=== PATIENT | male | born 1985 | race Caucasian/White ===

== ENCOUNTER 2018-07-31 17:38 | Emergency (ER) | payer SELFPAY ==
[2018-07-31 18:15] LABS: #Basophils 0.1 thou/uL (0.0-0.2); #Eosinphils 0.1 thou/uL (0.0-0.7); #Lymphocytes 2.5 thou/uL (1.20-3.40); #Monocytes 0.5 thou/uL (0.11-0.59); #Neutrophils 8.9 thou/uL (1.40-6.50); %Basophils 0.7 % (0.0-1.0); %Eosinophils 0.4 % (0.0-10.0); %Lymphocytes 20.8 % (21.0-51.0); %Monocytes 4.3 % (0.0-10.0); %Neutrophils 73.9 % (42.0-75.0); Hemoglobin 13.9 g/dL (14.0-18.0); Mean Corpuscular HGB CONC 33.3 g/dL (32.0-36.0); Mean Corpuscular Hemoglobin 28.2 pg (27.0-31.0); Mean Corpuscular Volume 84.8 fL (78.0-98.0); Mean Platelet Volume 8.8 fL (7.4-10.4); Platelet Count 175 thou/uL (130-400); RBC Distribution Width 11.7 % (11.5-14.5); Red Blood Cell (RBC) Count 4.94 mill/uL (4.70-6.10); White Blood Cell (WBC) Count 12.1 thou/uL (4.8-10.8)
[2018-07-31 18:29] LABS: ALT (SGPT) 17 U/L (8-55); AST (SGOT) 18 U/L (5-34); Albumin 4.3 g/dL (3.5-5.0); Alkaline Phosphatase 57 U/L (40-150); Anion Gap 15 mmol/L (10-20); BUN (Urea Nitrogen) 13 mg/dL (8.9-20.6); Bilirubin, Total 0.5 mg/dL (0.2-1.2); Calc. Creatinine Clearance 0 mL/min (70-130); Calcium 9.9 mg/dL (7.8-10.44); Carbon Dioxide 25 mmol/L (22-29); Chloride 105 mmol/L (98-107); Estimated GFR-MDRD Greater than 90; Globulin 3.3 g/dL (2.4-3.5); Glucose 94 mg/dL (70-105); Potassium 3.8 mmol/L (3.5-5.1); Protein, Total 7.6 g/dL (6.0-8.3); Sodium 141 mmol/L (136-145)
[2018-07-31 18:31] LABS: CKMB 1.4 ng/mL (0-6.6); Troponin I Less than 0.010 ng/mL (< 0.028)
--- NOTE | 2018-07-31 18:59 | RAD ---
.PORTABLE UPRIGHT FRONTAL CHEST RADIOGRAPH: 07/31/2018 HISTORY: Palpitations. COMPARISON: None. FINDINGS: There is no pneumothorax or pleural fluid. No focal consolidation or alveolar edema. Heart and medi astinal contours appear grossly unremarkable. There is an old clavicle fracture on the right. IMPRESSION: No acute findings. POS: [facility]
== END 2018-07-31 20:07 | disposition home or self-care (01) ==
LOC: SCSER 17:38
DX: I49.3 Ventricular premature depolarization (principal); F17.290 Nicotine dependence, other tobacco product, uncomplicated; F41.9 Anxiety disorder, unspecified
CPT/HCPCS: 36415; 71045; 80053; 82553; 83735; 84443; 84484; 85025; 93005; 94760

== ENCOUNTER 2019-09-28 06:34 | Day surgery (SDC) | payer OTHER ==
[2019-09-27 13:08] VITALS: BMI 21.7
[2019-09-28] MEDS ORDERED: Fentanyl 100 MCG/2 ML VIAL ONE ×2 (06:58→09:18)
[2019-09-28] MEDS ORDERED: Midazolam HCl 2 mg/2 ml Vial ONE ×2 (06:58→07:10)
[2019-09-28] MEDS ORDERED: Bupivacaine PF 0.5% 30 ML VIAL ONE (08:22)
[2019-09-28] MEDS ORDERED: Meperidine HCl/PF 25 MG/ML VIAL ONE (08:48)
--- NOTE | 2019-09-28 09:09 | RAD ---
XR Foot Rt 3 View STANDARD History: Foot pain Comparison: Radiograph September 14, 2019 Findings: Interval placement of a percutaneous pin through the third digit. Total fluoroscopy time: 8.6 seconds. Impression: Fluoroscopy for surgical purposes.
--- NOTE | 2019-09-28 09:17 | RAD ---
XR Foot Lt 3 View STANDARD History: ORIF Comparison: Radiograph September 14, 2019 Findings: Interval placement of a retrograde screw through the great toe tarsometatarsal joint as wel l as a cortical screw through the Lisfranc interval. Impression: Satisfactory postoperative appearance.
[2019-09-28] MEDS ORDERED: Bupivacaine HCl 0.5%/Epinephrine 1:200,000/PF 30 ml Vial ONE (10:13)
[2019-09-28] MEDS ORDERED: Ondansetron PF 4 MG/2 ML Vial ONE (10:13)
[2019-09-28] MEDS ORDERED: Ketorolac Tromethamine 30 MG/ML VIAL ONE (10:13)
[2019-09-28] MEDS ORDERED: PROPOFOL 200 MG/20 ML VIAL ONE (10:13)
[2019-09-28] MEDS ORDERED: HYDROcodone/Acetaminophen 5/325 mg Tablet ONE (11:09)
--- NOTE | 2019-10-01 14:45 | OP ---
DATE OF PROCEDURE: 09/28/2019 PREOPERATIVE DIAGNOSES: 1. Left Lisfranc fracture dislocation. 2. Right third metatarsal fracture. POSTOPERATIVE DIAGNOSES: 1. Left Lisfranc fracture dislocation. 2. Right third metatarsal fracture. PROCEDURE PERFORMED: 1. Open reduction and internal fixation of left Lisfranc fracture dislocation. 2. Open reduction and internal fixation of right third metatarsal fracture. ANESTHESIA: General. COSURGEON: Dr. Henry. TOURNIQUET TIME: 50 minutes at 300 mmHg for the left lower extremity. IMPLANTS: 0.062 K-wire for the right metatarsal and Synthes 3.5 mm cortical screws for the left Lisfranc injury. COMPLICATIONS: None. DRAINS: None. SPECIMEN: None. OUTCOME: Near anatomic alignment of both fractures. INDICATIONS FOR PROCEDURE: The patient is a 34-year-old gentleman who took a 10 foot fall off a roof awning sustaining trauma to both feet. He was found to have widening of the interval between the base of the first and second metatarsals with obvious disruption of the Lisfranc joint and a palmar based fracture at the base of the second metatarsal consistent with his Lisfranc fracture dislocation. The patient also sustained a right third metatarsal fracture with displacement. The patient now to undergo open reduction and internal fixation of both injuries. Informed consent has been obtained and all questions answered. DESCRIPTION OF PROCEDURE: After induction of general anesthesia, the patient was positioned supine on the OR table. Then, a sterile prep and drape was performed of both lower extremities. The right lower extremity was addressed with a small incision made dorsally overlying the fracture. After skin was sharply incised, dissection was carried down bluntly exposing the displaced fracture. It should be noted that an attempt at closed reduction was performed, however, this proved not to be successful. Once it was able to be reduced open, a pin was passed from the plantar surface metatarsal head up the shaft across the fracture into the metatarsal base, securing this bone and getting acceptable alignment. The pin was bent at a right angle and proud of the skin. The dorsal incision was then irrigated and closed in layers with Vicryl and nylon. Attention placed at the left lower extremity then performed. This limb was exsanguinated with Esmarch bandage, tourniquet inflated to 300 mmHg. A vertical incision was made between the first and second metatarsals at their base and extending down towards the shaft. After skin was sharply incised, dissection was carried down bluntly exposing the extensor tendons that were mobilized such that they could be moved either medially or laterally as needed for fracture and dislocation reduction. At this point, the Lisfranc ligament could be identified and was completely torn with blood sitting at the joint. Next, manually this fracture could be reduced with excessive application of force. There was found to be no evidence of the third, fourth, or fifth metatarsals having instability at their tarsometatarsal articulations. All of the standard measures for alignment were maintained. As such, attention was placed more at the first and second metatarsal bases. The great toe metatarsal was affixed to the medial cuneiform with a screw from the base of the metatarsal up into the cuneiform, this under C-arm guidance using standard technique and a countersink to bring the head below the cortex to hopefully alleviate symptomatic hardware. Once this first ray was stabilized, the fracture was then reduced at the Lisfranc joint under manual reduction using C-arm guidance and then a second small incision was made along the medial aspect of the medial cuneiform and then a screw passed obliquely across the cuneiform across the Lisfranc joint capturing both cortices of the base of the second metatarsal. This closed the Lisfranc joint and restored the normal horizontal arch of the midfoot. Once the screw positioning was obtained, the foot again inspected. No further subluxation was encountered. As such, both of these incisions were irrigated with bulb syringe and then closed in layers with 2-0 Vicryl and 4-0 nylon for skin. Xeroform gauze, Webril, and posterior fiberglass splint were applied to the left foot. The right foot was dressed with a soft dressing and then placed back in the postop boot for which the patient presented initially. The patient was then transferred to recovery room in stable condition. Tourniquet was let down at the completion of dressing of the left foot. There were no complications. He tolerated the procedure well. Job ID: [id number]
== END 2019-09-28 12:18 | disposition home or self-care (01) ==
LOC: SDC 06:34
PROVIDERS: ATTEND Orthopaedic Surgery
PROC: 0QSP04Z Reposition Left Metatarsal with Internal Fixation Device, Open Approach (ICD-10-PCS; principal; 2019-09-28)
PROC: 0QSN04Z Reposition Right Metatarsal with Internal Fixation Device, Open Approach (ICD-10-PCS; principal; 2019-09-28)
PROC: 3E0T3BZ Introduction of Anesthetic Agent into Peripheral Nerves and Plexi, Percutaneous Approach (ICD-10-PCS; 2019-09-28)
DX: S92.331A Displaced fracture of third metatarsal bone, right foot, initial encounter for closed fracture (principal); S93.325A Dislocation of tarsometatarsal joint of left foot, initial encounter; G89.18 Other acute postprocedural pain; W13.2XXA Fall from, out of or through roof, initial encounter
CPT/HCPCS: 76000; C1713; J0670; J0690; J1885; J2175; J2250; J2405; J2704; J3010; S0020

== ENCOUNTER 2019-10-09 17:54 | Inpatient (IN) | payer SELFPAY ==
[2019-10-09] MEDS ORDERED: Ondansetron PF 4 MG/2 ML Vial ONE ×2 (18:44)
[2019-10-09 20:10] LABS: Troponin I 0.209 ng/mL (< 0.028)
--- NOTE | 2019-10-09 20:27 | PDOC.FPRHP ---
- History of Present Illness Chief Complaint: N/V/Abdominal Pain History of Present Illness: Pt is a 34 yo male who presents from [place] for N,V, abdominal cramping, body aches, chills. Pt underwent surgery for multiple fractures in bilateral feet on 09/28/[address] So after sustaining the injuries on 09/14/19 s/p fall at work. He was not operated on for 2 weeks due to worker's comp. In that time he was taking tylenol, ibuprofen for pain medication. After surgery he was given norco for pain for which he took a few times. He did not have a BM from the time of his surgery. He took an enema on 10/08 with mild alleviation of symptoms. He began experiencing N/V 2/4 early in the morning, no temp noted. He noted 3-4 episodes of emesis per hr. He did endorse recent decrease PO intake. In the emergency a KUB, CXR were WNL. He was noted to have an elevated WBC, Hgb , Hct, Calcium, Albumin, Lactic Acid, trop. He had an IRMA. He was given 30 cc/ kg fluid bolus. Nephro was consulted and discussed fluids. Ortho made aware and will follow. - Allergies/Adverse Reactions Allergies Allergy/AdvReac Type Severity Reaction Status Date / Time No Known Allergies Allergy Verified 10/09/19 21:48 - Home Medications Medication Instructions Recorded Confirmed Type No Known 10/09/19 10/09/19 History - History PMHx: denies PSHx: denies FHx: Father - 5/6 cancers including non-hodgkins lymphoma, DM; Mother - cervical cancer Social: lives with and kids, endorsed marijuana use, denies other drugs, alcohol, tobacco - Review of Systems General: reports: fever/chills, weight/appetite/sleep changes, fatigue ENT: denies: nasal congestion, rhinorrhea Respiratory: reports: cough. denies: congestion, shortness of breath Cardiovascular: denies: chest pain, palpitation, edema Gastrointestinal: reports: nausea, vomiting, constipation, GI bleeding (bright red blood with wiping). denies: diarrhea Skin: denies: rashes, lesions Musculoskeletal: reports: pain. denies: swelling - Vital signs BP: 124/82 HR: 93 RR: 16 Tmax: 98.7 Pox: 97% on 2L Wt: 72.6 kg - Physical Exam Constitutional: NAD, awake, alert and oriented HEENT: PERRLA, EOMI Neck: FROM, no JVD Heart: RRR, normal S1/S2, pulses present, no edema Lungs: CTAB, good air movement Abdomen: soft, non-tender, bowel sounds present -Abdomen: no rebound tenderness, palpation did elicit nausea Musculoskeletal: ROM grossly normal -Musculoskeletal: Bilateral appropriately bandaged, no signs of streaking erythema up calves Neurological: no focal deficit, CN II-XII intact Heme/Lymphatic: no purpura, no petechia Psychiatric: normal mood and affect FMR H&P: Results - Labs Result Diagrams: 10/10/19 04:09 10/10/19 04:09 Lab results: Lactic Acid 1.4 mmol/L (0.5-2.2) 10/09/19 19:59 - Radiology Interpretation Chest x-ray Status: image reviewed by me Additional comment: No cardiopulm abnormalities Other Status: report reviewed by me Additional comment: KUB revealed no dilated loops of bowel FMR H&P: A/P - Problem List (1) Emesis Current Visit: Yes Status: Acute Code(s): R11.10 - VOMITING, UNSPECIFIED (2) SIRS (systemic inflammatory response syndrome) Current Visit: Yes Status: Acute Code(s): R65.10 - SIRS OF NON-INFECTIOUS ORIGIN W/O ACUTE ORGAN DYSFUNCTION (3) IRMA (acute kidney injury) Current Visit: Yes Status: Acute Code(s): N17.9 - ACUTE KIDNEY FAILURE, UNSPECIFIED (4) Elevated troponin Current Visit: Yes Status: Acute Code(s): R79.89 - OTHER SPECIFIED ABNORMAL FINDINGS OF BLOOD CHEMISTRY (5) Coffee ground emesis Current Visit: Yes Status: Acute Code(s): K92.0 - HEMATEMESIS (6) Bilateral ankle fractures Current Visit: Yes Status: Acute Code(s): S82.891A - OTH FRACTURE OF RIGHT LOWER LEG, INIT FOR CLOS FX; S82.892A - OTH FRACTURE OF LEFT LOWER LEG, INIT FOR CLOS FX - Plan Pt is a 34 yo male here for: # SIRS w/o known source Lactic acidosis resolved. Given rocephin, 30 cc/kg in the emergency department. - d/c abx as likely not infectious process. WBC could be reaction from surg, hemoconcentration. - monitor for resolution # IRMA - likely prerenal cause. possible AIN w/ NSAID use. - nephro following, appreciate recs - NS 150 mls/hr # Constipation No BM since 09/27. - start bowel regimen # Emesis # Hematemesis KUB non-revealing. CXR WNL. - protonix IV started - consult GI in am # Hypercalcemia # Hyperalbuminemia - likely secondary to dehydration - repeat labs # Bilateral Ankle Fractures s/p Surgery - does not appear to be infectious - Ortho following, appreciate recs - PT/OT, wound care ordered - tylenol pain # Elevated trops Likely demand ischemia - trend VTE: Heparin Fluids: NS 150 mls/hr Diet: Renal Code: Full Dispo: > 48 hr stay FMR H&P: Upper Level - Plan Date/Time: 10/09/192026 ILaura, have evaluated this patient and agree with findings/plan as outlined by digital marketing intern resident. Pertinent changes/additions are listed here. Pt is a 34 yo M with PMH of recent b/l ORIF of b/l feet with Dr. So on presenting for n/v, abd pain, body aches, chills, and weakness for 3 days. Tx from [place] ED Received 30ml/kg IV NS bolus, Zosyn, Rocephin, Phenergan, and Zofran at outside ED. Here he also got 8mg Zofran. Pertinent Hx: VS: BP124/82, P83, R28, T98.7, O2 97% 2L NC PE: Gen: well developed, NAD HEENT: Moist MM, no LAD, no JVD Heart: RRR, no murmurs or extra sounds. Distal pulses 2+ Lungs: CTAB, no wheezing. No increased work of breathing Abd: soft, nontender, BS+ Ext: no cyanosis or edema Skin: no rashes or wounds present Psych: AOx3, normal mood Pertinent Labs/Imaging: WBC 20.7, H/H: 18.3/57.9, Plt: 359 LA: 5.9 Na 145, K 4.4, Cl 98, Co2 20, BUN 27, Cr 3.12, Ca 13.8, albumin >6.2, total protein 11.2 Troponin 0.081, CKMB 1.0 Lipase 18 KUB Xray: nonspecific bowel gas pattern CXR: no acute findings A/P: SIRS without a source: -WBC elevated to 20, initially tachycardic, and with increased rate. Also with Lactic acidosis. -does not appear to be surgical site based off exam. Consider Xray, ESR, CRP. Consult Dr. So tomorrow to evaluate site. -procal and flu swab pending -abd pain resolved at this time, Lipase wnl, less likely diverticulitis, appendicitis, but consider Ctabd if pain appears again. -UA and Ucx pending, blood cx pending -will give broad spectrum abx- Vanc and Zosyn. Abd Pain, resolved: -likely 2/2 constipation -will give stool regimen -UA pending IRMA: -2/2 hypovolemia vs NSAID use, still appears volume down on my exam. -FeUrea pending -Nepho consulted in ED, NS @150ml/hr Anion Gap Metabolic Acidosis: -likely 2/2 lactic acidosis Hypercalcemia -also with hyperalbuminemia, repeat CMP after IVF to see if this is hemoconcentrated -pending repeat labs, if still elevated, will need PTH, vit D, and possibly consider malignancy workup Hyperglycemia: -repeat CMP, if still elevated will get A1c Elevated Troponin: -trend, likely 2/2 demand DVT PPx: Heparin GI PPx: Protonix Code status: Full Dispo: LOS likely >48h Addendum - Attending - Attending Attestation Date/Time: 10/10/19 0908 I personally evaluated the patient and discussed the management with Dr. Gutierrez and Feliberto. I agree with the History, Examination, Assessment and Plan documented above with any addition or exceptions noted below. There is no signs of a focal bacterial infection. Cultures pending but I do not think antibiotics are necessary. If an infection is present it s more likely to be a virus. Coffee ground emesis is indicative of upper GI bleeding. Protonix started. Patient sometimes uses THC. THis may be compounding vomiting. Drug screen ordered.
[2019-10-09 21:45] VITALS: BMI 18.6
[2019-10-09] MEDS ORDERED: Acetaminophen 325 MG TAB PO PRN (22:44)
[2019-10-09] MEDS ORDERED: Senokot S 8.6-50 MG TAB PO PRN (22:44)
[2019-10-09] MEDS ORDERED: Ondansetron ODT 4 MG TAB PO PRN (22:44)
[2019-10-09 23:04] LABS: Troponin I 0.232 ng/mL (< 0.028)
[2019-10-09] MEDS: Sodium Chloride 0.9% 1,000 ML IV SCH (23:15)
[2019-10-09 23:22] LABS: ALT (SGPT) 21 U/L (8-55); AST (SGOT) 17 U/L (5-34); Albumin 4.3 g/dL (3.5-5.0); Alkaline Phosphatase 73 U/L (40-110); Anion Gap 13 mmol/L (10-20); BUN (Urea Nitrogen) 25 mg/dL (8.9-20.6); Bilirubin, Total 0.4 mg/dL (0.2-1.2); Calc. Creatinine Clearance 58 mL/min (70-130); Carbon Dioxide 23 mmol/L (22-29); Chloride 109 mmol/L (98-107); Estimated GFR-MDRD 51; Globulin 3.3 g/dL (2.4-3.5); Glucose 145 mg/dL (70-105); Potassium 4.3 mmol/L (3.5-5.1); Protein, Total 7.6 g/dL (6.0-8.3); Sodium 141 mmol/L (136-145)
[2019-10-09 23:48] LABS: Band 11 % (5-11); Hemoglobin 14.3 g/dL (14.0-18.0); Lymphocytes 21 % (21-51); MDiff Complete? YES; Mean Corpuscular HGB CONC 33.3 g/dL (32.0-36.0); Mean Corpuscular Hemoglobin 29.7 pg (27.0-31.0); Mean Corpuscular Volume 89.1 fL (78.0-98.0); Mean Platelet Volume 8.8 fL (7.4-10.4); Monocytes 7 % (0-10); Neutrophil 61 % (42-75); Platelet Count 222 thou/uL (130-400); RBC Distribution Width 12.1 % (11.5-14.5); Red Blood Cell (RBC) Count 4.81 mill/uL (4.70-6.10); White Blood Cell (WBC) Count 14.9 thou/uL (4.8-10.8)
[2019-10-10] MEDS ORDERED: Promethazine HCl 12.5 MG in Sodium Chloride 0.9% 50 ML IVPB PRN (00:39)
[2019-10-10 01:10] LABS: Amphetamine Not Detected (NotDetected); Barbiturates Screen Not Detected (NotDetected); Benzodiazepine Screen Not Detected (NotDetected); Cocaine Metabolite Screen Not Detected (NotDetected); Medtox Control Line Valid? VALID (VALID); Medtox Reader # READER 4; Methadone Not Detected (NotDetected); Methamphetamine Not Detected (NotDetected); Opiate Screen Not Detected (NotDetected); Oxycodone Screen Not Detected (NotDetected); Phencyclidine (PCP) Not Detected (NotDetected); THC/Cannabinoid Screen Detected (NotDetected); Tricyclic Screen Not Detected (NotDetected)
[2019-10-10 01:46] LABS: Bilirubin Negative (Negative); Blood, Urine Negative (Negative); Calcium Oxalate Crystals Rare HPF (None Seen); Clarity Turbid (Clear); Glucose, Urine (Dipstick) Normal (Negative); Leukocyte 25 Leu/uL (Negative); Nitrite Negative (Negative); Protein, Urine (Dipstick) 100 mg/dL (Neg-Trace); Squamous Epithelial 0-3 HPF (0-3); Urobilinogen Normal mg/dL (Less than 2)
[2019-10-10 01:49] LABS: Bacteria/HPF 1+ HPF (None Seen)
[2019-10-10 02:01] LABS: Creatinine, Urine 321.01 mg/dL (63-166)
[2019-10-10 02:11] LABS: Urea Nitrogen, Random Urine Greater than 1200 mg/dl
[2019-10-10] MEDS ORDERED: Pantoprazole 80 MG, Admixture Fee 1 EACH in Sodium Chloride 0.9% 100 ML IVP SCH (02:15)
[2019-10-10] MEDS ORDERED: Nitroglycerin 50 MG/250 ML BOT 0 ML ONE (03:01)
[2019-10-10] MEDS: Sodium Chloride 0.9% 1,000 ML IV SCH ×2 (03:21→10:49)
[2019-10-10 04:59] LABS: ALT (SGPT) 20 U/L (8-55); AST (SGOT) 16 U/L (5-34); Alkaline Phosphatase 68 U/L (40-110); Anion Gap 12 mmol/L (10-20); BUN (Urea Nitrogen) 23 mg/dL (8.9-20.6); Bilirubin, Total 0.5 mg/dL (0.2-1.2); Calc. Creatinine Clearance 76 mL/min (70-130); Calcium 9.7 mg/dL (7.8-10.44); Carbon Dioxide 23 mmol/L (22-29); Chloride 111 mmol/L (98-107); Estimated GFR-MDRD 70; Globulin 3.2 g/dL (2.4-3.5); Glucose 120 mg/dL (70-105); Potassium 3.9 mmol/L (3.5-5.1); Protein, Total 7.2 g/dL (6.0-8.3); Sodium 142 mmol/L (136-145)
--- NOTE | 2019-10-10 05:14 | PDOC.FM ---
- Subjective Subjective: Mr. Chapman is doing better this morning. Last night he had a few episodes of coffee ground emesis. He reports that he has been taking NSAIDS at home for the past month for pain. He has also been nauseous and vomiting for the last several days. He denies chest pain, shortness of breath, current nausea. He reports abdominal discomfort and constipation. - Objective MAR Reviewed: Yes Vital Signs & Weight: Vital Signs (12 hours) Temp Pulse Resp BP Pulse Ox 10/10/19 03:38 97.8 F 84 18 118/59 L 97 10/10/19 00:05 99.8 F H 100 20 118/69 99 10/09/19 21:00 100.5 F H 99 20 115/69 99 Weight Weight 62.142 kg Result Diagrams: 10/10/19 04:09 10/10/19 04:09 Phys Exam - Physical Examination Constitutional: NAD HEENT: PERRLA, moist MMs Very poor dentition Neck: supple, full ROM Respiratory: no wheezing, no rales, no rhonchi, clear to auscultation bilateral Cardiovascular: RRR, no significant murmur, no rub Gastrointestinal: soft, positive bowel sounds Musculoskeletal: no edema Bilateral feet wrapped in niurka bandages. Neurological: non-focal, normal sensation, moves all 4 limbs Psychiatric: normal affect, A&O x 3 Skin: no rash, normal turgor Dx/Plan (1) IRMA (acute kidney injury) Code(s): N17.9 - ACUTE KIDNEY FAILURE, UNSPECIFIED Status: Acute (2) Bilateral ankle fractures Code(s): S82.891A - OTH FRACTURE OF RIGHT LOWER LEG, INIT FOR CLOS FX; S82.892A - OTH FRACTURE OF LEFT LOWER LEG, INIT FOR CLOS FX Status: Acute (3) Coffee ground emesis Code(s): K92.0 - HEMATEMESIS Status: Acute (4) Elevated troponin Code(s): R79.89 - OTHER SPECIFIED ABNORMAL FINDINGS OF BLOOD CHEMISTRY Status : Acute (5) Emesis Code(s): R11.10 - VOMITING, UNSPECIFIED Status: Acute (6) SIRS (systemic inflammatory response syndrome) Code(s): R65.10 - SIRS OF NON-INFECTIOUS ORIGIN W/O ACUTE ORGAN DYSFUNCTION Status: Acute - Plan Plan: SIRS w/o known source - Lactic acidosis resolved. - S/p one dose of rocephin, 30 cc/kg in the emergency department. - Negative procalcitonin and no suspicion for infection at this time. Will d/c antibiotics and monitor for resolution or development of an infection. - Patient was exceptionally dehydrated which could explain abnormal vitals and labs. IRMA - likely prerenal cause. FeUrea pending. Will continue IV fluid hydration. - nephro following, appreciate recs - NS 150 mls/hr Constipation - Patient had small BM after suppository. Will schedule colace and miralax today. Senna PRN. Will utilize fleets enema later today if still no success. Emesis / Hematemesis - h/o significant NSAID use. Protonix 40mg IVP BID started. Will consult GI. Hypercalcemia / Hyperalbuminemia - likely secondary to dehydration - repeat labs Bilateral Ankle Fractures s/p ORIF - does not appear to be infectious - Ortho following, appreciate recs - PT/OT, wound care ordered - Tylenol for pain Elevated trops Likely demand ischemia - trend VTE: Heparin Fluids: NS 150 mls/hr Diet: Renal Code: Full Dispo: Inpatient, anticipate > 48 hr stay Addendum - Attending - Attending Attestation Date/Time: 10/10/19 1310 I personally evaluated the patient and discussed the management with the team. I agree with the History, Examination, Assessment and Plan documented above with any addition or exceptions noted below. Feels much improved. Suspect 2/2 NSAID use and dehydration. Continue hydration and monitor. GI consultation either inpatient or outpatient.
[2019-10-10 05:16] LABS: Band 7 % (5-11); Hemoglobin 13.4 g/dL (14.0-18.0); Lymphocytes 23 % (21-51); MDiff Complete? YES; Mean Corpuscular Hemoglobin 29.3 pg (27.0-31.0); Mean Corpuscular Volume 88.5 fL (78.0-98.0); Mean Platelet Volume 9.2 fL (7.4-10.4); Monocytes 5 % (0-10); Neutrophil 65 % (42-75); Platelet Count 214 thou/uL (130-400); Red Blood Cell (RBC) Count 4.58 mill/uL (4.70-6.10); White Blood Cell (WBC) Count 14.5 thou/uL (4.8-10.8)
--- NOTE | 2019-10-10 05:36 | CON ---
DATE OF CONSULTATION: 10/10/2019 CONSULTING PHYSICIAN: Dr. Parra. REASON FOR CONSULT: Acute kidney injury. REASON FOR ADMISSION: Nausea. HISTORY OF PRESENT ILLNESS: This is a 34-year-old male, with history of recent work-related accident and a fall and foot problem, who came to the hospital with nausea and the patient was found to have acute kidney injury with hypercalcemia. Nephrology consulted. The patient is feeling slightly better, but the patient complains of abdominal cramping and chills. PAST MEDICAL HISTORY: Positive for recent fall at work and foot issues. PAST SURGICAL HISTORY: Bilateral foot surgery. HOME MEDICATIONS: None. ALLERGIES: NO KNOWN DRUG ALLERGIES. SOCIAL HISTORY: Denies alcohol or drug abuse. He uses tobacco. FAMILY HISTORY: No history of kidney disease. REVIEW OF SYSTEMS: CONSTITUTIONAL: Negative for weight loss or gain, ability to conduct usual activities. SKIN: Negative for rash, itching. EYES: Negative for double vision, pain. ENT/MOUTH: Negative for nose bleeding, neck stiffness, pain, tenderness. CARDIOVASCULAR: Negative for palpitations, dyspnea on exertion, orthopnea. RESPIRATORY: Negative for shortness of breath, wheezing, cough, hemoptysis, fever or night sweats. GASTROINTESTINAL: Negative for poor appetite, abdominal pain, heartburn, nausea, vomiting, constipation, or diarrhea. GENITOURINARY: Negative for urgency, frequency, dysuria, nocturia. MUSCULOSKELETAL: Negative for pain, swelling. NEUROLOGIC/PSYCHIATRIC: Negative for anxiety, depression. ALLERGY/IMMUNOLOGIC: Negative for skin rash, bleeding tendency. Rest all negative review of systems. PHYSICAL EXAMINATION: GENERAL: This is a thin-built male, in no apparent distress. VITAL SIGNS: Temperature 97, pulse 92, respiratory rate 20, blood pressure 124/82. HEENT: Atraumatic, normocephalic. Oral mucosa is moist. NECK: Supple. CV: S1 and S2 heard. Rate and rhythm regular. RESPIRATORY: Clear. GASTROINTESTINAL: Abdomen is soft. MUSCULOSKELETAL: . DERMATOLOGIC: No skin rash. NEUROLOGIC: Alert, awake, and oriented x3. No focal neurologic deficits. Moving all the extremities. PSYCHIATRIC: Mood and affect normal. LABORATORY DATA: Hemoglobin is 14.3, potassium 4.3, BUN is 25, and creatinine is 1.5, calcium is 17.8. ASSESSMENT AND PLAN: 1. Acute kidney injury. Initial creatinine was 3.1, now around 1.5 with IV hydration, most likely from volume depletion. Monitor labs and continue hydration. 2. Hypercalcemia, most likely volume depletion. We will monitor his calcium level. 3. . 4. Hypertension, blood pressure controlled. 5. Hemoconcentration, seems to be better. 6. Leukocytosis, rule out infection. 7. Lactic acidosis, monitor. 8. Continue hydration. Avoid nephrotoxins. We will follow. Thank you for the consult. Job ID: [id number]
[2019-10-10 06:49] LABS: Troponin I 0.256 ng/mL (< 0.028)
--- NOTE | 2019-10-10 08:32 | ULT ---
Venous duplex sonogram bilateral lower extremity HISTORY: Bilateral leg pain and edema. FINDINGS: Each common femoral vein and greater saphenous junction were evaluated along with each femo ral, deep femoral, popliteal, and posterior tibial vein. There is good color and spectral Doppler flow, compression, and augmentation. IMPRESSION: Normal exam.
[2019-10-10] MEDS ORDERED: Fleet Enema 133 ML BOT PR PRN (08:35)
[2019-10-10] MEDS ORDERED: Polyethylene Glycol 3350 17 GM Packet PO PRN (08:35)
[2019-10-10] MEDS ORDERED: Heparin 5,000 UNITS/ML VIAL SC SCH (09:00)
[2019-10-10] MEDS ORDERED: Pantoprazole 40 MG VIAL IVP SCH (09:00)
[2019-10-10] MEDS: Docusate 100 MG CAP PO SCH ×2 (09:32→20:45)
[2019-10-10] MEDS: Pantoprazole 40 MG VIAL IVP SCH ×2 (09:32→20:46)
[2019-10-10 10:21] LABS: Troponin I 0.165 ng/mL (< 0.028)
--- NOTE | 2019-10-10 10:33 | PRG ---
DATE OF SERVICE: 10/10/2019 SUBJECTIVE: Patient was seen and examined at bedside and overnight events noted. Patient denies any shortness of breath or chest pain or palpitation. No history of nausea or vomiting or diarrhea or fever or chills or cramps. OBJECTIVE: GENERAL: This is a well-built, in no apparent distress. VITAL SIGNS: Temperature 99.0. Heart rate 77. Respiratory rate 18. Blood pressure 106/56. HEENT: Atraumatic, normocephalic. Oral mucosa is moist. NECK: Supple. CARDIOVASCULAR: S1, S2 heard. Rate and rhythm regular. RESPIRATORY: Clear to auscultation. GASTROINTESTINAL: Abdomen is soft. MUSCULOSKELETAL: No tenderness. No edema. DERMATOLOGIC: No skin rash. NEUROLOGIC: Alert and awake and oriented x3. No focal neurologic deficits. Moving all the extremities. PSYCHIATRIC: Mood and affect normal. LABORATORY DATA: Potassium is 3.9, BUN is 33, and creatinine is 1.1. ASSESSMENT AND PLAN: 1. Acute kidney injury, much better. 2. Hypercalcemia, better. 3. Edema, controlled. 4. Hypertension. 5. Hemoconcentration. 6. Lactic acidosis, better. Avoid nephrotoxins. Continue hydration as tolerated. We will follow. Job ID: [id number]
[2019-10-10] MEDS: Lactated Ringer's 1,000 ML IV SCH ×3 (11:34→22:53)
[2019-10-10] MEDS ORDERED: Ondansetron PF 4 MG/2 ML Vial IVP PRN (12:25)
[2019-10-10 14:04] LABS: Platelet Count 182 thou/uL (130-400)
--- NOTE | 2019-10-10 15:45 | CON ---
DATE OF CONSULTATION: 10/10/2019 SUBJECTIVE: Kee is a 34-year-old male, well known to our service for bilateral Lisfranc fractures of the feet. He underwent operative management of both feet on September 28. He was recently readmitted to the hospital by the Family Practice Service for nausea, vomiting, and some metabolic disturbances to include elevated BUN, creatinine, and a slightly elevated troponin. The patient is still within his global period and has a followup appointment next week for removal of splints and stitches in both feet. We were notified of his hospitalization and decided to at least stop by and visit with the patient and I have inspected pictures of his feet after his splints were removed. PHYSICAL EXAMINATION: Splints are intact. He has been re-dressed by the Wound Care Team. No strikethrough noted. He is neurovascularly intact. IMPRESSION: Status post open reduction and internal fixation for a left Lisfranc injury and a right metatarsal fracture. PLAN: Continue current care. We will follow along with the patient's hospitalization if any problems develop. Job ID: [id number]
[2019-10-11] MEDS ORDERED: Melatonin 3 MG TAB PO PRN (01:01)
[2019-10-11 04:38] LABS: #Basophils 0.1 thou/uL (0.0-0.2); #Eosinphils 0.1 thou/uL (0.0-0.7); #Lymphocytes 3.8 thou/uL (1.20-3.40); #Monocytes 1.1 thou/uL (0.11-0.59); #Neutrophils 4.6 thou/uL (1.40-6.50); %Basophils 0.8 % (0.0-1.0); %Eosinophils 1.5 % (0.0-10.0); %Lymphocytes 39.1 % (21.0-51.0); %Monocytes 11.1 % (0.0-10.0); %Neutrophils 47.4 % (42.0-75.0); Hemoglobin 11.8 g/dL (14.0-18.0); Mean Corpuscular HGB CONC 32.8 g/dL (32.0-36.0); Mean Corpuscular Hemoglobin 29.6 pg (27.0-31.0); Mean Corpuscular Volume 90.1 fL (78.0-98.0); Mean Platelet Volume 8.9 fL (7.4-10.4); Platelet Count 155 thou/uL (130-400); RBC Distribution Width 11.8 % (11.5-14.5); Red Blood Cell (RBC) Count 4.01 mill/uL (4.70-6.10); White Blood Cell (WBC) Count 9.8 thou/uL (4.8-10.8)
[2019-10-11] MEDS ORDERED: Lactated Ringer's 1,000 ML IV SCH (05:19)
--- NOTE | 2019-10-11 05:23 | PDOC.FM ---
- Subjective Subjective: Resting well this morning. Has not had BM. - Objective MAR Reviewed: Yes Vital Signs & Weight: Vital Signs (12 hours) Temp Pulse Resp BP BP Pulse Ox 10/11/19 03:34 98.5 F 66 16 112/68 99 10/10/19 23:58 79 119/69 10/10/19 20:41 98.2 F 61 18 116/73 98 Weight Admit Weight 62.142 kg Weight 62.142 kg I&O: 10/09/19 10/10/19 10/11/19 06:59 06:59 06:59 Intake Total 4610 Output Total 2575 Balance 2034 Result Diagrams: 10/11/19 04:24 10/10/19 04:09 Phys Exam - Physical Examination Constitutional: NAD HEENT: PERRLA, moist MMs Poor dentition Neck: supple, full ROM Respiratory: no wheezing, no rales, no rhonchi, clear to auscultation bilateral Cardiovascular: RRR, no significant murmur, no rub Gastrointestinal: soft, non-tender, no distention, positive bowel sounds Musculoskeletal: no edema, pulses present Neurological: non-focal, moves all 4 limbs Psychiatric: normal affect, A&O x 3 Skin: no rash, normal turgor Dx/Plan (1) IRMA (acute kidney injury) Code(s): N17.9 - ACUTE KIDNEY FAILURE, UNSPECIFIED Status: Acute (2) Bilateral ankle fractures Code(s): S82.891A - OTH FRACTURE OF RIGHT LOWER LEG, INIT FOR CLOS FX; S82.892A - OTH FRACTURE OF LEFT LOWER LEG, INIT FOR CLOS FX Status: Acute (3) Coffee ground emesis Code(s): K92.0 - HEMATEMESIS Status: Acute (4) Elevated troponin Code(s): R79.89 - OTHER SPECIFIED ABNORMAL FINDINGS OF BLOOD CHEMISTRY Status : Acute (5) Emesis Code(s): R11.10 - VOMITING, UNSPECIFIED Status: Acute (6) SIRS (systemic inflammatory response syndrome) Code(s): R65.10 - SIRS OF NON-INFECTIOUS ORIGIN W/O ACUTE ORGAN DYSFUNCTION Status: Acute (7) Constipation Code(s): K59.00 - CONSTIPATION, UNSPECIFIED Status: Acute - Plan Plan: SIRS w/o known source - Likely 2/2 dehydration. - Lactic acidosis resolved. IRMA, improved - likely prerenal cause. FeUrea likely prerenal. - received fluid bolus and LR @ 150 on HD #1. Will decrease rate to 75 and encourage PO intake. - nephro following, appreciate recs Constipation - Will schedule colace and lactulose today. Patient had PRNs available yesterday that were not given and he refused an enema. Will schedule Lactulose today until BM. If no BM by the PM will administer enema. Patient is agreeable. Emesis / Hematemesis - h/o significant NSAID use. Protonix 40mg IVP BID started. - H&H Stable, no further episodes of emesis. Recommend outpatient GI f/u. Hypercalcemia / Hyperalbuminemia - likely secondary to dehydration Bilateral Ankle Fractures s/p ORIF - does not appear to be infectious - Ortho following, appreciate recs - PT/OT, wound care ordered - Tylenol for pain Elevated trops, improved Likely demand ischemia - trend VTE: Heparin Fluids: LR 75 Diet: Full Liquid, advance as tolerated Code: Full Dispo: Inpatient, anticipate > 48 hr stay Addendum - Attending - Attending Attestation Date/Time: 10/11/19 1985 I personally evaluated the patient and discussed the management with Dr. Granda. I agree with the History, Examination, Assessment and Plan documented above with any addition or exceptions noted below. Patient with soft BM this morning. He denies any abd discomfort. No n/v. No hematemesis. No cp/sob. He feels great and has eaten without problems. He would like to go home. We discussed his elevated TnI. He has no symptoms and I believe can follow up clinically. I believe likely 2/2 his IRMA. We discussed need for follow up with a PCP and GI. Continue PPI and avoid NSAIDs.
[2019-10-11 08:38] VITALS: TEMP 98.2
[2019-10-11] MEDS: Pantoprazole 40 MG VIAL IVP SCH (08:44)
[2019-10-11] MEDS: Docusate 100 MG CAP PO SCH (08:46)
[2019-10-11 11:30] VITALS: BP 119/69
--- NOTE | 2019-10-12 15:29 | DIS ---
DATE OF ADMISSION: 10/09/2019 DATE OF DISCHARGE: 10/11/2019 ADMITTING ATTENDING: Jean Pierre Garland MD DISCHARGE ATTENDING: Jefferson Aguila MD RESIDENT: Inocencia Granda MD CONSULTS: Nephrology, Dr. Fontenot. PROCEDURES: None. PRIMARY DIAGNOSIS: Systemic inflammatory response syndrome without a source. SECONDARY DIAGNOSES: 1. Acute kidney injury. 2. Constipation. 3. Emesis. 4. Hypercalcemia. 5. Bilateral ankle fractures, status post surgery. 6. Elevated troponin. DISCHARGE MEDICATIONS: 1. Colace. 2. Protonix. DISCONTINUED MEDICATIONS: None. HISTORY OF PRESENT ILLNESS AND HOSPITAL COURSE: Mr. Chapman is a 34-year-old gentleman, who presented from [facility] for the nausea, vomiting, abdominal pain, body aches, and chills. He recently underwent surgery for multiple fractures in bilateral feet on 09/28/[address] So after sustaining a fall with injuries on the 14 of September. He has been taking significant amount of Tylenol and ibuprofen to manage his pain at home for 2 weeks until he underwent surgery. After surgery, he was given [place] for acute pain, which he was taking frequently. He states that he has not had a bowel movement since 09/27/2019. Upon arrival, he had a white count, reported fever, which met SIRS criteria. He was admitted and started on significant amount of IV fluids. He was given Rocephin in the ER and antibiotics were source of infection. The patient had an IRMA with an initial creatinine of 3.12, which downtrended to 1.57 and later 1.19 with IV fluid hydration. Nephrology was consulted and recommended continued IV fluid hydration. During his hospital stay, he had a few episodes of coffee-grounds emesis and was started on Protonix b.i.d. for suspected gastric ulcer secondary to NSAID use. The patient clinically improved during his stay and blood and urine cultures were negative. Flu swab was negative and his laboratory studies improved. The patient was discharged home. DISPOSITION: Stable. DISCHARGE INSTRUCTIONS: 1. Location: Home. 2. Diet: Regular. 3. Activity: Ad da. 4. Followup: Follow up with primary care physician within 7 to 10 days. Follow up with Gastroenterology as outpatient. Job ID: [id number]
== END 2019-10-11 15:18 | disposition home or self-care (01) | DRG 683 ==
LOC: ERS 17:54 → 2NO 20:47
PROVIDERS: ADMIT Family Medicine; ATTEND Family Medicine
DX: N17.9 Acute kidney failure, unspecified (principal); R65.10 Systemic inflammatory response syndrome (SIRS) of non-infectious origin without acute organ dysfunction; K92.0 Hematemesis; I24.8 Other forms of acute ischemic heart disease; E87.2 Acidosis; K59.00 Constipation, unspecified; E83.52 Hypercalcemia; E86.0 Dehydration; E86.1 Hypovolemia; R73.9 Hyperglycemia, unspecified; T39.395A Adverse effect of other nonsteroidal anti-inflammatory drugs [NSAID], initial encounter; Z83.3 Family history of diabetes mellitus; Z87.81 Personal history of (healed) traumatic fracture; Z80.49 Family history of malignant neoplasm of other genital organs
CPT/HCPCS: 36415; 36416; 80053; 80306; 81001; 82271; 82570; 83605; 84145; 84484; 84540; 85025; 85060; 85379; 87086; 87804; 89190; 93970; 96374; 99406; C9113; J2405; J2550; J3490; Q0162

== ENCOUNTER 2020-05-05 08:13 | Outpatient (CLI) | payer OTHER ==
[2020-05-05 16:16] LABS: Hemoglobin 14.7 g/dL (14.0-18.0); Mean Corpuscular Hemoglobin 29.2 pg (27.0-31.0); Mean Corpuscular Volume 91.4 fL (78.0-98.0); Platelet Count 230 thou/uL (130-400); RBC Distribution Width 12.6 % (11.5-14.5); Red Blood Cell (RBC) Count 5.04 mill/uL (4.70-6.10); White Blood Cell (WBC) Count 8.4 thou/uL (4.8-10.8)
[2020-05-05 16:27] LABS: INR-International Normal Ratio 0.9; PTT 29.8 sec (22.9-36.1); Prothrombin Time 12.3 sec (12.0-14.7)
[2020-05-06 12:26] LABS: SARS-CoV-2 MS2 Positive; SARS-CoV-2 N Gene Negative; SARS-CoV-2 S Gene Negative; SARS-CoV-2 by NAA Not Detected (NotDetected); SARS-CoV-2 orf1ab Negative
== END 2020-05-05 08:14 | disposition home or self-care (01) ==
LOC: LABBT 08:13
PROVIDERS: ATTEND Orthopaedic Surgery
DX: Z01.812 Encounter for preprocedural laboratory examination (principal); Z20.828 Contact with and (suspected) exposure to other viral communicable diseases
CPT/HCPCS: 85027; 85610; 85730; 87635; U0003

== ENCOUNTER 2020-05-08 10:26 | Day surgery (SDC) | payer OTHER ==
[2020-05-06 10:04] VITALS: BMI 21.7
[2020-05-08] MEDS ORDERED: PROPOFOL 200 MG/20 ML VIAL ONE (11:48)
[2020-05-08] MEDS ORDERED: Lidocaine 1% PF 5 ML VIAL ONE (11:48)
[2020-05-08] MEDS ORDERED: Midazolam HCl 2 mg/2 ml Vial ONE ×2 (12:06→12:31)
[2020-05-08] MEDS ORDERED: Fentanyl 100 MCG/2 ML VIAL ONE ×3 (12:31→13:58)
[2020-05-08] MEDS ORDERED: Ondansetron PF 4 MG/2 ML Vial ONE (14:20)
[2020-05-08] MEDS ORDERED: HYDROcodone/Acetaminophen 5/325 mg Tablet ONE (15:03)
--- NOTE | 2020-05-09 09:58 | RAD ---
EXAM: One view of the left foot HISTORY: Foot pain COMPARISON: None FINDINGS/IMPRESSION: A single limited intraoperative fluoroscopic views of the left foot shows remova l of the previously seen hardware spanning the tarsometatarsal joints of the second and first toes.
--- NOTE | 2020-05-09 10:36 | OP ---
DATE OF PROCEDURE: 05/08/2020 PREOPERATIVE DIAGNOSIS: Symptomatic retained hardware, left foot. POSTOPERATIVE DIAGNOSIS: Symptomatic retained hardware, left foot. PROCEDURE PERFORMED: Removal of hardware, left foot. ANESTHESIA: General. TOURNIQUET TIME: Zero. COMPLICATIONS: None. DRAINS: None. SPECIMEN: Explanted screws x2. INDICATIONS: The patient is a 35-year-old gentleman, status post Lisfranc fracture dislocation of left foot. This was treated with two cortical screws. The patient has now healed his injury, but is having symptoms secondary to the retained hardware. After discussion with the patient including risks and benefits, we decided to proceed with removal of hardware. Informed consent has been obtained, I believe all questions answered. DESCRIPTION OF PROCEDURE: The patient was brought to the operating room and a time-out performed followed by induction of general anesthesia. Next, the patient was positioned supine on the OR table and a sterile prep and drape was performed in the left lower extremity. Next, using the prior skin incisions as guides, two incisions were made, one over the medial aspect of the mid foot and the other one dorsally. After skin was sharply incised, dissection was carried down bluntly and then with C-arm guidance, the two screws were removed without difficulty. Once removed, the two incisions were irrigated with bulb syringe and then closed in layers with 2-0 Vicryl subcutaneously followed by nylon for the skin. Xeroform gauze and Lai wrap dressing were then applied to the foot and the patient was transferred to recovery room in stable condition. There were no complications. He tolerated the procedure well. Job ID: [id number]
== END 2020-05-08 15:45 | disposition home or self-care (01) ==
LOC: SDC 10:26
PROVIDERS: ATTEND Orthopaedic Surgery
PROC: 0SPL04Z Removal of Internal Fixation Device from Left Tarsometatarsal Joint, Open Approach (ICD-10-PCS; principal; 2020-05-08)
DX: T84.84XA Pain due to internal orthopedic prosthetic devices, implants and grafts, initial encounter (principal)
CPT/HCPCS: 76000; J0690; J2250; J2405; J2704; J3010